=== PATIENT | male | born 1975 | race African-American/Black ===

== ENCOUNTER 2018-12-01 00:24 | Emergency (ER) | payer MEDICAID ==
[~2018-12-01] VITALS: Ht 170.2 cm; Wt 59.0 kg
--- NOTE | 2018-12-01 00:42 | Emergency Room Report ---
History of Present Illness General Chief Complaint: Pain Source: Patient Present Illness HPI Is a 43-year-old male with a history of sickle cell thalassemia. He presents with chief complaint of body pain and sickle cell crisis. Onset for last 2 days. Pain is diffuse in nature. Pain to his chest and back. Pain to his legs and joints. Pain is 10 out of 10. Nothing made it better. Nothing made it worse. Ibuprofen not helping. No fever or chills. No shortness of breath. Last crisis was in August. He is not on any medication. He said he moved here from [place] in June. Allergies: Coded Allergies: No Known Allergies (Unverified , 12/01/18) Patient History Past Medical History: see triage record, old chart reviewed Past Surgical History: none Pertinent Family History: none Social History: Denies: smoking Immunizations: other Reviewed Nursing Documentation: PMH: Agreed; PSxH: Agreed Nursing Documentation-PM Past Medical History: No History, Except For Review of Systems Eye: Denies: eye pain, blurred vision ENT: Denies: ear pain, nose congestion, throat swelling Respiratory: Denies: cough, shortness of breath Cardiovascular: Denies: chest pain, palpitations Gastrointestinal: Denies: abdominal pain, diarrhea, nausea, vomiting Musculoskeletal: Reports: back pain, muscle pain; Denies: joint pain Skin: Denies: rash Neurological: Denies: headache, numbness Endocrine: Denies: increased thirst, increased urine Hematologic/Lymphatic: Denies: easy bruising All Other Systems: negative except mentioned in HPI Physical Exam Vital Signs Date Time Temp Pulse Resp B/P (MAP) Pulse Ox O2 Delivery O2 Flow Rate FiO2 12/01/18 00:26 98.2 84 16 136/62 (86) 98 Room Air Vitals normal Sp02 EP Interpretation: reviewed, normal General Appearance: well appearing, no apparent distress, alert Head: normocephalic, atraumatic Eyes: bilateral eye PERRL, bilateral eye EOMI ENT: hearing grossly normal, normal pharynx Neck: full range of motion, supple, no meningismus Respiratory: chest non-tender, lungs clear, normal breath sounds Cardiovascular #1: regular rate, rhythm, no murmur Gastrointestinal: normal bowel sounds, non tender, no mass, no organomegaly, no bruit, non-distended Musculoskeletal: back normal, gait/station normal, normal range of motion Psychiatric: mood/affect normal Skin: warm/dry Medical Decision Making Diagnostic Impression: Primary Impression: Sickle cell pain crisis ER Course Presents with sickle cell pain/crisis. No evidence of aplastic crisis. No evidence of infection. Pain better controlled now. Will discharge home. Last Vital Signs Date Time Temp Pulse Resp B/P (MAP) Pulse Ox O2 Delivery O2 Flow Rate FiO2 12/01/18 00:26 98.2 84 16 136/62 (86) 98 Room Air Status: improved Disposition: HOME, SELF-CARE Condition: Stable Scripts Ibuprofen* (MOTRIN*) 600 Mg Tablet 600 MG ORAL THREE TIMES A DAY, #30 TAB 0 Refills Prov: Noe Aguirre MD 12/01/18 Hydrocodone/Acetaminophen 5-325* (HYDROCODONE/ACETAMINOPHEN 5-325*) 1 Each Tablet 1 TAB ORAL Q6H PRN for For Pain, #10 TAB 0 Refills Prov: Noe Aguirre MD 12/01/18 Additional Instructions: Follow-up with your doctor in 7 days. Return if symptoms worsen. Noe Aguirre MD Dec 01, 2018 00:42
--- NOTE | 2018-12-01 00:43 | NUR ---
ED Nurse Note: Pt GIOVANNY RAGunner from [facility], pt c/o and has a hx of sickle cell, pt reports 10/10 pain in chest and back. Pt is A&Ox4, denies sob
[2018-12-01 00:44] VITALS: BP 136/62
[2018-12-01 00:58] LABS: BASOPHILS % (AUTO) 0.9 % (0.0-2.0); EOSINOPHILS % (AUTO) 1.1 % (0.0-3.0); HEMATOCRIT 33.8 % (42.0-52.0); HEMOGLOBIN 11.7 G/DL (14.2-18.0); LYMPHOCYTES % (AUTO) 30.1 % (20.0-45.0); MEAN CORPUSCULAR VOLUME 77 FL (80-99); MONOCYTES % (AUTO) 8.9 % (1.0-10.0); PLATELET COUNT 155 K/UL (150-450); RED BLOOD COUNT 4.36 M/UL (4.70-6.10); RED CELL DISTRIBUTION WIDTH 15.4 % (11.6-14.8); WHITE BLOOD COUNT 9.1 K/UL (4.8-10.8)
[2018-12-01 01:01] LABS: APPEARANCE,URINE CLEAR; BILIRUBIN, URINE NEGATIVE (NEGATIVE); COLOR,URINE PALE YELLOW; GLUCOSE, URINE (UA) NEGATIVE (NEGATIVE); KETONES,URINE NEGATIVE (NEGATIVE); LEUKOCYTE ESTERASE ,URINE NEGATIVE (NEGATIVE); NITRITE,URINE NEGATIVE (NEGATIVE); PH,URINE 7 (4.5-8.0); PROTEIN,URINE NEGATIVE (NEGATIVE); UROBILINOGEN,URINE 1 MG/DL (0.0-1.0)
[2018-12-01 01:12] LABS: ANION GAP 6 mmol/L (5-15); BLOOD UREA NITROGEN 9 mg/dL (7-18); CALCIUM 9.4 MG/DL (8.5-10.1); CARBON DIOXIDE 28 MMOL/L (21-32); CHLORIDE 105 MMOL/L (98-107); CREATININE 0.9 MG/DL (0.55-1.30); POTASSIUM 4.2 MMOL/L (3.5-5.1); SODIUM 139 MMOL/L (136-145)
[2018-12-01] MEDS ORDERED: Morphine Sulfate 4mg/ml Inj (IV USE ONLY) IVP ONE ×5 (01:15→03:30)
--- NOTE | 2018-12-01 02:37 | NUR ---
ED Nurse Note: Pt resting in bed with eyes closed, non-labored breathing. Pt reports pain has lessened 7/10 generalized. Will continue to monitor, VSS
[2018-12-01 02:38] VITALS: BP 132/65
[2018-12-01] MEDS ORDERED: HYDROCODON-ACE1 EA15 ORAL (02:46)
[2018-12-01] MEDS ORDERED: IBUPROFEN600 MG ORAL (02:46)
--- NOTE | 2018-12-01 04:30 | NUR ---
ED Nurse Note: Pt resting in bed, states the pain has lessened and is able to get some sleep. Pt awaiting transport. NO further orders at this time, will continue to monitor
[2018-12-01 04:50] VITALS: BP 105/70
--- NOTE | 2018-12-01 04:58 | NUR ---
ED Nurse Note: Pt c/o headache, Dr Vaca verbal order for 600mg ibuprophen.
[2018-12-01 05:23] VITALS: BP 105/68
--- NOTE | 2018-12-01 05:25 | NUR ---
ER DISCHARGE NOTE: Patient is cleared to be transferred to [facility] per ERMD, pt is aox4, on room air, with stable vital signs. pt was given dc and prescription instructions, pt was able to verbalize understanding, pt id bandremoved. pt is taken by ambulance BLS. pt took all belongings.
== END 2018-12-01 05:25 | disposition home or self-care (01) ==
LOC: EDBD 00:24 → EMR 00:50
DX: D57.00 Hb-SS disease with crisis, unspecified (principal)
CPT/HCPCS: 36415; 80048; 80307; 81001; 85025; 85044; 96361; 96374; 96375; 96376; 99284; J2270; J2405